=== PATIENT | male | born 1955 | race American Indian/Alaskan Native ===

== ENCOUNTER 2021-03-02 05:51 | Day surgery (SDC) | payer OTHER ==
[2021-03-02] MEDS ORDERED: LACTATED RINGERS 1,000 ML ONE (07:09)
--- NOTE | 2021-03-02 07:16 | Anesthesia Day of Surgery ---
Anesthesia Day of Surgery - Day of Surgery Patient Examined: Yes Patient H&P Reviewed: Yes Patient is NPO: Yes Beta Blockers: Yes
--- NOTE | 2021-03-02 07:16 | Anesthesia Consultation ---
Anesthesia Consult and Med Hx Date of service: 03/02/21 - Airway Anesthetic Teeth Evaluation: Good, Partials (upper) ROM Head & Neck: Adequate Mental/Hyoid Distance: Adequate Mallampati Class: Class II Intubation Access Assessment: Probably Good - Pre-Operative Health Status ASA Pre-Surgery Classification: ASA2 Proposed Anesthetic Plan: General - Pulmonary Hx Smoking: No Hx Sleep Apnea: No (SANTO PRE SCREEN HIGH RISK) - Cardiovascular System Hx Hypertension: Yes (X 3 MONTHS) Hx Coronary Artery Disease: No (high cholesterol) Hx Peripheral Vascular Disease: Yes (CHRONIC NONHEALING WOUNDS CAROLE FEET) - Central Nervous System Hx Psychiatric Problems: No - Endocrine Hx Non-Insulin Dependent Diabetes: No (off meds for the last month, A1C 5.4) - Hematic Hx Anemia: No - Other Systems Hx Cancer: No
[2021-03-02] MEDS ORDERED: ceFAZolin/Water 2 GM/20 ML 2 GM/20 ML SYRINGE IV ONE (07:18)
[2021-03-02] MEDS ORDERED: BUPIVACAINE/PF (0.5%) 5 MG/1 ML 30 ML VIAL INFILTRATI ONE ×2 (07:18→08:58)
[2021-03-02] MEDS ORDERED: LIDOCAINE (1%) 10 MG/1 ML VIAL 20 ML MDV ONE (07:18)
[2021-03-02] MEDS ORDERED: ceFAZolin/STERILE WATER 2 GM/20 ML SYRINGE IV NR (07:20)
[2021-03-02] MEDS ORDERED: propofoL 200 MG/20 ML VIAL IV ONE (07:21)
[2021-03-02] MEDS ORDERED: LIDOCAINE MPF (2%) 20 MG/1 ML VIAL 5 ML ONE (07:21)
[2021-03-02] MEDS ORDERED: HYDROmorphone 1 MG/1 ML INJ ONE (07:21)
[2021-03-02] MEDS ORDERED: ONDANSETRON 4 MG/2 ML INJ IV PRN (07:24)
[2021-03-02] MEDS ORDERED: HYDROmorphone 1 MG/1 ML INJ IV PRN ×2 (07:45)
[2021-03-02] MEDS ORDERED: LACTATED RINGERS 1,000 ML IV SCH (07:45)
[2021-03-02] MEDS ORDERED: PHENYLEPHRINE/NS 1,000 MCG/10 ML SYRINGE (OR USE) IV ONE (07:54)
[2021-03-02] MEDS ORDERED: MIDAZOLAM 2 MG/2 ML INJ IV NR (08:00)
[2021-03-02] MEDS ORDERED: FAMOTIDINE 20 MG/2 ML INJ IV NR (08:00)
[2021-03-02] MEDS ORDERED: SODIUM CHLORIDE 0.9% 1000 ML 1,000 ML ONE (08:02)
[2021-03-02] MEDS ORDERED: BACITRACIN ZINC OINT 28.4 GM TP ONE ×2 (08:31→08:40)
[2021-03-02] MEDS ORDERED: ONDANSETRON 4 MG/2 ML INJ ONE (08:48)
[2021-03-02] MEDS ORDERED: LIDOCAINE (1%) 10 MG/1 ML VIAL 20 ML MDV INFILTRATI ONE (08:58)
[2021-03-02] MEDS ORDERED: SODIUM CHLORIDE 0.9% 1000 ML IV SOLN IR ONE (08:59)
[2021-03-02] MEDS ORDERED: SODIUM CHLORIDE 0.9% IRR 1,500 ML BOTTLE IR ONE (08:59)
--- NOTE | 2021-03-02 16:52 | Post Anesthesia Evaluation ---
- Post Anesthesia Evaluation Patient Participated: Yes Airway Patent: Yes Stable Respiratory Function: Yes Nausea/Vomiting: No Temp > 96.8F: Yes Pain Manageable: Yes Adequeate Hydration: Yes Anesthesia Complications: No Block Receding Appropriately: Not Applicable Patient on Ventilator: No
[2021-03-02 18:06] VITALS: BP 109/60
--- NOTE | 2021-03-03 09:33 | Operative Report ---
DATE OF SURGERY: 03/02/2021 PREOPERATIVE DIAGNOSES: 1. Chronic ulcer, dorsum of the left foot. 2. Chronic ulcer, dorsum of the right foot. POSTOPERATIVE DIAGNOSES: 1. Chronic ulcer, dorsum of the left foot. 2. Chronic ulcer, dorsum of the right foot. SURGICAL PROCEDURES: 1. Aggressive debridement with Misonix machines with application of ____ graft to left foot without incident. 2. Aggressive debridement with Misonix machines with application of ____ graft to right foot without incident. ANESTHESIA: General anesthesia and 1% lidocaine plain plus 0.5% Marcaine plain, 6 mL infiltrated into the left foot and 6 mL infiltrated into the right foot after cleansing with alcohol and Betadine. TOURNIQUET: No tourniquet was used. DESCRIPTION OF PROCEDURE: At this time, with the use of the Misonix debridement machine, tissue was debrided without incident and a 5 cm ____ graft was applied to the left foot and the margins were re-approximated with 4-0 Vicryl and bacitracin ointment and Adaptic was applied and the foot was wrapped with Kerlix, Marycarmen, and Coban. Same procedure was performed on the right foot. The patient tolerated the procedure and anesthesia well after extubation and was transferred to recovery and discharged home with both written and oral postoperative instructions. The patient will be placed in postoperative shoes. The patient will follow up in 1 week. TID: [id number] RECEIPT: [id number] MARYANNE/PARVIN/ROMÁN
== END 2021-03-02 10:20 | disposition home or self-care (01) ==
LOC: OR 05:51
PROVIDERS: ATTEND Podiatrist Foot & Ankle Surgery
DX: L97.529 Non-pressure chronic ulcer of other part of left foot with unspecified severity (principal); L97.519 Non-pressure chronic ulcer of other part of right foot with unspecified severity; Z20.822 Contact with and (suspected) exposure to COVID-19; I10 Essential (primary) hypertension; I73.9 Peripheral vascular disease, unspecified; Z79.899 Other long term (current) drug therapy; Z98.890 Other specified postprocedural states
CPT/HCPCS: 15271; 82962; J0690; J1170; J2250; J2370; J2405; J2704; J3490; J7030; J7120; Q4175; U0003; Q0162